=== PATIENT | female | born 1985 | race Caucasian/White ===

== ENCOUNTER 2016-05-01 18:26 | Emergency (ER) | payer MEDICAID, OTHER ==
[~2016-05-01] VITALS: Ht 165.1 cm; Wt 84.0 kg
[~2016-05-01 18:26] MED LIST: DEXM20XR PO; LEXA10TA PO
[2016-05-01 18:55] VITALS: BP 135/82; PULSE 86; RESP 16; TEMP 98.8; O2SAT 100
[2016-05-01] MEDS ORDERED: METHOCARBAMOL 500 MG TAB PO SCH (20:45)
[2016-05-01] MEDS ORDERED: ACETAMIN 325 MG/BUTALBITAL 50 MG/CAFFEINE 40 MG TAB PO ONE (20:45)
--- NOTE | 2016-05-01 20:53 | PD ---
HPI Chief Complaint: Musculoskeletal Complaint Time Seen by Provider: 20:40 Travel History International Travel<30 days: No Contact w/Intl Traveler<30days: No Traveled to known affect area: No History of Present Illness HPI 30-year-old female presents to the emergency room for evaluation of neck and back pain causing posterior headache for the past 4-5 days. 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 Believes this may have exacerbated her pain. Pain starts in the neck and radiates upward and downward. She has been taking Advil without significant relief in symptoms. No history of migraine headaches. Headache is in the back of her skull and also occurs over the right frontal sinuses. Reports associated photophobia. Headache is relieved with neck extension. Patient denies any nasal congestion, cough, or cold symptoms. No aura, nausea, vomiting, fever, chills. Denies any trauma. PFSH Past Medical History Medical History: Denies Significant Hx Diabetes: No Diminished Hearing: No Immunizations Current: No Tetanus Vaccination: < 5 Years Influenza Vaccination: No ?: Unknown LMP: 12 25 16 Past Surgical History Surgical History: No Previous Surgery Social History Alcohol Use: No Tobacco Use: No Substance Use: No Allergies-Medications (Allergen,Severity, Reaction): Coded Allergies: Benadryl (Verified Allergy, Severe, 05/01/16) Penicillin (Verified Allergy, Severe, RASH, 05/01/16) Reported Meds & Prescriptions Reported Meds & Active Scripts Active Ibuprofen 800 Mg Tab 800 Mg PO Q8H PRN Robaxin (Methocarbamol) 750 Mg Tab 750 Mg PO Q8HR Review of Systems Except as stated in HPI: all other systems reviewed are Neg Physical Exam Narrative GENERAL: Well-nourished, well-developed female in no acute distress. Afebrile. Ambulatory. SKIN: Warm and dry. HEAD: Normocephalic. EYES: No scleral icterus. No injection or drainage. NECK: Supple, trachea midline. No JVD or lymphadenopathy. No midline tenderness. Full range of motion. No meningismus. CARDIOVASCULAR: Regular rate and rhythm without murmurs, gallops, or rubs. RESPIRATORY: Breath sounds equal bilaterally. No accessory muscle use. NEUROLOGICAL: Awake and alert. Cranial nerves II through XII intact. Motor and sensory grossly within normal limits. Five out of 5 muscle strength in all muscle groups. Normal speech. Data Data Last Documented VS Vital Signs Date Time Temp Pulse Resp B/P Pulse Ox O2 Delivery O2 Flow Rate FiO2 05/01/16 18:55 98.8 86 16 135/82 100 Orders Wbnw-Dymnl-Inqi 325-50-40 Mg (Fioricet 3 (05/01/16 20:45) Methocarbamol (Robaxin) (05/01/16 20:45) MDM Medical Decision Making Medical Screen Exam Complete: Yes Emergency Medical Condition: Yes Medical Record Reviewed: Yes Differential Diagnosis Migraine versus muscle spasm versus strain versus fracture Narrative Course 30-year-old female presents to the emergency room for evaluation of neck pain that radiates into her back and head; it has been ongoing for the past 4-5 days , improves occasionally with Aleve. Denies any trauma or injury. 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 No midline tenderness of the cervical spine. Tenderness with patient the bilateral paraspinous musculature. Full range of motion of the neck. Headache pain is improved with neck extension. No meningismus. She denies history of migraines. Associated photophobia. Patient has no associated symptoms of sinusitis or upper respiratory infection. She is afebrile and well-appearing in the emergency room. Resting comfortably in bed. Laughing, smiling. No focal neurological deficits on exam. No indication for emergent CT imaging. History of physical exam are consistent with cervical strain causing headache. Patient was given Fioricet and Robaxin the emergency room. She'll be discharged with prescriptions for ibuprofen and Robaxin and told to follow up with the primary care physician or return to the emergency room for worsening symptoms. She understands and agrees to this plan. Diagnosis Primary Impression: Cervical strain, acute Qualified Code: S16.1XXA - Cervical strain, acute, initial encounter Referrals: Primary Care Physician Patient Instructions: Cervical Strain (ED), General Instructions Additional Instructions: Rest and drink plenty of fluids. Take Robaxin as directed, as needed for pain. Take ibuprofen with food as directed, as needed for pain. Apply ice to the affected area for 20 minutes at a time, as needed for pain and swelling. Follow-up with a primary care physician. Return to the emergency room for worsening symptoms. Med/Other Pt SpecificInfo: Prescription(s) given Scripts Ibuprofen 800 Mg [id number] Mg PO Q8H PRN (Pain/Inflammation) #21 TAB Ref 0 Prov:Aniyah Holguin MD 05/01/16 Methocarbamol (Robaxin)750 Mg Xwd365 Mg PO Q8HR #21 TAB Ref 0 Prov:Aniyah Holguin MD 05/01/16 Disposition: 01 DISCHARGE HOME Condition: Stable Kimberly Lo May 01, 2016 20:53
[2016-05-01] MEDS ORDERED: IBUP800T23 PO (20:54)
[2016-05-01] MEDS ORDERED: ROBA750T PO (20:54)
== END 2016-05-01 21:41 | disposition home or self-care (01) ==
LOC: PHEFT 18:26
DX: S16.1XXA Strain of muscle, fascia and tendon at neck level, initial encounter (principal); R51 Headache; H53.149 Visual discomfort, unspecified; X50.0XXA Overexertion from strenuous movement or load, initial encounter; Y93.F2 Activity, caregiving, lifting; Y99.0 Civilian activity done for income or pay
CPT/HCPCS: 99283

== ENCOUNTER 2017-01-06 04:20 | Emergency (ER) | payer MEDICAID ==
[~2017-01-06] VITALS: Ht 165.1 cm; Wt 78.0 kg
[~2017-01-06 04:20] MED LIST changes: -DEXM20XR PO; +IBUP800T23 PO; -LEXA10TA PO; +ROBA750T PO
[2017-01-06 04:25] VITALS: BP 130/62; PULSE 62; RESP 18; TEMP 98.1; O2SAT 99
--- NOTE | 2017-01-06 04:52 | PD ---
HPI Chief Complaint: Related Problem Time Seen by Provider: 04:35 Travel History International Travel<30 days: No Contact w/Intl Traveler<30days: No History of Present Illness HPI patient is a 31-year-old female here approximately 7-9 weeks gestational age, continues to smoke presents emergency Department with abdominal cramping wrapping around her back which she states feels like contractions associated with some spotting of blood now becoming of her bleeding. Denies any vomiting but does endorse some nausea. Denies any diarrhea constipation or dysuria. States symptoms are moderate and she thinks might be having a miscarriage. [facility] Past Medical History Medical History: Denies Significant Hx Diabetes: No Diminished Hearing: No Immunizations Current: No Past Surgical History Surgical History: No Previous Surgery Social History Alcohol Use: No Tobacco Use: Yes Substance Use: No Allergies-Medications (Allergen,Severity, Reaction): Coded Allergies: diphenhydramine (Verified Allergy, Severe, 01/06/17) penicillin G (Verified Allergy, Severe, RASH, 01/06/17) Reported Meds & Prescriptions Reported Meds & Active Scripts Active No Active Prescriptions or Reported Medications Review of Systems Except as stated in HPI: all other systems reviewed are Neg Physical Exam Narrative GENERAL: Well-developed well-nourished no obvious distress SKIN: Focused skin assessment warm/dry. HEAD: Atraumatic. Normocephalic. EYES: Pupils equal and round. No scleral icterus. No injection or drainage. ENT: No nasal bleeding or discharge. Mucous membranes pink and moist. NECK: Trachea midline. No JVD. CARDIOVASCULAR: Regular rate and rhythm. No murmur appreciated. RESPIRATORY: No accessory muscle use. Clear to auscultation. Breath sounds equal bilaterally. GASTROINTESTINAL: Abdomen soft, non-tender, nondistended. Hepatic and splenic margins not palpable. GENITOURINARY: Vaginal bleeding, moderate blood in the vaginal vault, no cervical motion tenderness no bimanual tenderness. Later in the counter the patient did pass tissue consistent with products of conception. MUSCULOSKELETAL: No obvious deformities. No clubbing. No cyanosis. No edema. NEUROLOGICAL: Awake and alert. No obvious cranial nerve deficits. Motor grossly within normal limits. Normal speech. PSYCHIATRIC: Appropriate mood and affect; insight and judgment normal. Data Data Last Documented VS Vital Signs Date Time Temp Pulse Resp B/P (MAP) Pulse Ox O2 Delivery O2 Flow Rate FiO2 01/06/17 06:47 01/06/17 06:12 98.0 61 17 98 Room Air Orders Orders Urinalysis - C+S If Indicated (01/06/17 04:34) Ed Urine Pregnancytest Poc (01/06/17 04:34) Ed Poc Ultrasound (01/06/17 ) Complete Blood Count With Diff (01/06/17 04:49) Beta Hcg (Quant/Titer) (01/06/17 04:49) Acetaminophen (Tylenol) (01/06/17 05:15) Labs Laboratory Tests Test 01/06/17 04:49 01/06/17 05:05 Urine Color ORANGE Urine Turbidity SLIGHT Urine pH 7.0 Urine Specific [place] 1.010 Urine Protein 30 mg/dL Urine Glucose (UA) NEG mg/dL Urine Ketones NEG mg/dL Urine Occult Blood LARGE Urine Nitrite NEG Urine Bilirubin NEG Urine Leukocyte Esterase NEG Urine RBC INNUM /hpf Urine Squamous Epithelial Cells 0-5 /hpf Urine Amorphous Sediment FEW Microscopic Urinalysis Comment CULT NOT INDICATED White Blood Count 14.4 TH/MM3 Red Blood Count 4.49 MIL/MM3 Hemoglobin 13.7 GM/DL Hematocrit 40.2 % Mean Corpuscular Volume 89.6 FL Mean Corpuscular Hemoglobin 30.6 PG Mean Corpuscular Hemoglobin Concent 34.1 % Red Cell Distribution Width 12.1 % Platelet Count 298 TH/MM3 Mean Platelet Volume 7.7 FL Neutrophils (%) (Auto) 65.1 % Lymphocytes (%) (Auto) 27.0 % Monocytes (%) (Auto) 5.6 % Eosinophils (%) (Auto) 1.8 % Basophils (%) (Auto) 0.5 % Neutrophils # (Auto) 9.3 TH/MM3 Lymphocytes # (Auto) 3.9 TH/MM3 Monocytes # (Auto) 0.8 TH/MM3 Eosinophils # (Auto) 0.3 TH/MM3 Basophils # (Auto) 0.1 TH/MM3 CBC Comment AUTO DIFF Differential Comment AUTO DIFF CONFIRMED Platelet Estimate LOW Platelet Morphology Comment NORMAL Red Cell Morphology Comment NORMAL Human Chorionic Gonadotropin, Quant 2890 MIU/ML [facility] Medical Decision Making Medical Screen Exam Complete: Yes Emergency Medical Condition: Yes Differential Diagnosis Threatened , completed miscarriage, Rh mismatch has been excluded by patient's EMR. Narrative Course patient roomed emergency department, she appears comfortable in no distress, H& H within normal limits. HCG is 2800. While awaiting for a ultrasound of her abdomen the patient did have apparent completion of her . My condolences were offered to her. Discussed smoking cessation. Discussed pelvic rest until follows up with an [employer] nurse 6 weeks. No indication for RhoGAM here. Discussed 6 blood bleeding to slow within the next 48 hours if not needs to return to the emergency department for repeat hCG and consideration of at that time for possible retained products conception. however at this time her bleeding slowed she stable for discharge. Diagnosis Primary Impression: Complete miscarriage Additional Instructions: Recommend repeat blood work in 48 hours, he can do this with your primary care physician or in the emergency department. Her hCG today is 2890. Scripts No Active Prescriptions or Reported Meds Disposition: 01 DISCHARGE HOME Condition: Stable Tim Marx MD Jan 06, 2017 04:52
[2017-01-06 04:55] LABS: BLOOD, URINE LARGE (NEG); GLUCOSE,URINE NEG (NEG); KETONE, URINE NEG (NEG); NITRITE,URINE NEG (NEG)
[2017-01-06 05:10] LABS: URINE COLOR ORANGE (YELLW/STRAW)
[2017-01-06 05:11] LABS: RBC, URINE INNUM /hpf (0-3); SQUAMOUS EPITHELIAL CELL URINE 0-5 /hpf (0-5)
[2017-01-06 05:12] LABS: COMMENT (UR) CULT NOT INDICATED; CULTURE IF INDICATED CULT NOT INDICATED
[2017-01-06] MEDS ORDERED: ACETAMINOPHEN 325 MG TAB PO ONE (05:15)
[2017-01-06 05:27] LABS: AUTOMATED NEUTROPHIL # 9.3 TH/MM3 (1.8-7.7); BASOPHIL # 0.1 TH/MM3 (0-0.2); BASOPHIL % 0.5 % (0.0-2.0); EOSINOPHIL # 0.3 TH/MM3 (0-0.4); EOSINOPHIL % 1.8 % (0.0-4.0); HEMATOCRIT 40.2 % (35.0-46.0); LYMPHOCYTE # 3.9 TH/MM3 (1.0-4.8); MEAN CELL VOLUME 89.6 FL (80.0-100.0); MEAN CORPUSCULAR HEMOGLOBIN 30.6 PG (27.0-34.0); MEAN CORPUSCULAR HGB CONC 34.1 % (32.0-36.0); MONO % 5.6 % (0.0-8.0); NEUT % 65.1 % (16.0-70.0); PLATELET COUNT 298 TH/MM3 (150-450); RED BLOOD COUNT 4.49 MIL/MM3 (4.00-5.30); RED CELL DISTRIBUTION WIDTH 12.1 % (11.6-17.2); WHITE BLOOD COUNT 14.4 TH/MM3 (4.0-11.0)
[2017-01-06 05:30] LABS: HEMO FLAGS AUTO DIFF
[2017-01-06 05:51] LABS: BETA HCG QUANT 2890 MIU/ML (0-5); SCAN/DIFF AUTO DIFF CONFIRMED
[2017-01-06 05:52] LABS: PLATELET ESTIMATE SMEAR LOW (NORMAL); PLATELET MORPHOLOGY NORMAL (NORMAL)
[2017-01-06 06:12] VITALS: BP 116/73; PULSE 61; RESP 17; TEMP 98; O2SAT 98
== END 2017-01-06 06:55 | disposition home or self-care (01) ==
LOC: PHED 04:20
DX: O03.9 Complete or unspecified spontaneous abortion without complication (principal); R11.0 Nausea; Z72.0 Tobacco use; Z3A.08 8 weeks gestation of pregnancy
CPT/HCPCS: 81001; 84702; 85025; 88305; 99284

== ENCOUNTER 2017-01-08 10:23 | Emergency (ER) | payer MEDICAID ==
[~2017-01-08] VITALS: Ht 165.1 cm; Wt 77.1 kg
[2017-01-08 10:24] VITALS: BP 137/68; PULSE 66; RESP 18; TEMP 97.3; O2SAT 99
--- NOTE | 2017-01-08 10:43 | PD ---
HPI Chief Complaint: Abnormal Results Time Seen by Provider: 10:43 Travel History International Travel<30 days: No Contact w/Intl Traveler<30days: No Traveled to known affect area: No History of Present Illness HPI 31-year-old female came to the emergency room with history of repeat beta-hCG that she was asked to come back today to get it done. Patient started having miscarriage 4 days ago. She was seen in the emergency room 2 days ago at which point she was diagnosed with complete . Since her beta-hCG was high and she was asked to come back to get it repeated. Patient says she still bleeding but it is getting less and she is not passing as many clots. The cramp is still there but again getting better. She seems comfortable and vital signs are stable. Patient was signed weeks . No OB care was done. [facility] Past Medical History Narrative Medical list of her past medical, surgical, social and family history is reviewed from the nursing note. Diabetes: No Diminished Hearing: No Immunizations Current: No Influenza Vaccination: No ?: Unknown LMP: 10/2016 : 4 Para: 2 : 1 Social History Alcohol Use: No Tobacco Use: Yes Substance Use: No Allergies-Medications (Allergen,Severity, Reaction): Coded Allergies: diphenhydramine (Verified Allergy, Severe, 01/08/17) penicillin G (Verified Allergy, Severe, RASH, 01/08/17) Comments List of her allergies reviewed from the nursing note. Reported Meds & Prescriptions Reported Meds & Active Scripts Active No Active Prescriptions or Reported Medications Narrative Medication List of her home medications reviewed from the nursing note. Review of Systems Except as stated in HPI: all other systems reviewed are Neg Physical Exam Narrative GENERAL: Awake, alert, no obvious distress SKIN: Focused skin assessment warm/dry. HEAD: Atraumatic. Normocephalic. EYES: Pupils equal and round. No scleral icterus. No injection or drainage. ENT: No nasal bleeding or discharge. Mucous membranes pink and moist. NECK: Trachea midline. No JVD. CARDIOVASCULAR: Regular rate and rhythm. No murmur appreciated. RESPIRATORY: No accessory muscle use. Clear to auscultation. Breath sounds equal bilaterally. GASTROINTESTINAL: Abdomen soft, non-tender, nondistended. Hepatic and splenic margins not palpable. MUSCULOSKELETAL: No obvious deformities. No clubbing. No cyanosis. No edema. NEUROLOGICAL: Awake and alert. No obvious cranial nerve deficits. Motor grossly within normal limits. Normal speech. PSYCHIATRIC: Appropriate mood and affect; insight and judgment normal. Data Data Last Documented VS Vital Signs Date Time Temp Pulse Resp B/P (MAP) Pulse Ox O2 Delivery O2 Flow Rate FiO2 01/08/17 10:24 97.3 66 18 137/68 (91) 99 Orders Orders Beta Hcg (Quant/Titer) (01/08/17 10:48) Labs Laboratory Tests Test 01/08/17 11:15 Human Chorionic Gonadotropin, Quant 294 MIU/ML MDM Medical Decision Making Medical Screen Exam Complete: Yes Emergency Medical Condition: Yes Medical Record Reviewed: Yes Differential Diagnosis Completed miscarriage, repeat blood test Narrative Course 11:31 AM blood test has been sent. Awaiting for the test result. 11:44 AM blood test result is back and the titer is significantly lower. I'll discharge her home. Procedures EKG Prior to Arrival: No Diagnosis Primary Impression: Complete Referrals: Primary Care Physician Additional Instructions: no tampons, vaginal intercourse, douching or anything in the vagina until the bleeding has completely stopped. Do not lift heavy weights. Return to the ER if the condition worsens or any other new concerns. Otherwise follow-up with your primary care. Med/Other Pt SpecificInfo: No Change to Meds Scripts No Active Prescriptions or Reported Meds Disposition: 01 DISCHARGE HOME Condition: Stable Slava Kennedy MD Jan 08, 2017 10:43
[2017-01-08 11:39] LABS: BETA HCG QUANT 294 MIU/ML (0-5)
== END 2017-01-08 12:07 | disposition home or self-care (01) ==
LOC: PHED 10:23
DX: O03.9 Complete or unspecified spontaneous abortion without complication (principal); Z72.0 Tobacco use
CPT/HCPCS: 84702; 99281

== ENCOUNTER 2017-05-02 13:28 | Emergency (ER) | payer MEDICAID ==
[~2017-05-02] VITALS: Ht 165.1 cm; Wt 77.3 kg
[2017-05-02 13:37] VITALS: BP 146/70; PULSE 81; RESP 16; TEMP 98.6; O2SAT 99
--- NOTE | 2017-05-02 15:01 | PD ---
HPI Chief Complaint: Musculoskeletal Complaint Time Seen by Provider: 14:56 Travel History International Travel<30 days: No Contact w/Intl Traveler<30days: No Traveled to known affect area: No History of Present Illness HPI Patient presents with complaints of muscular pain in the left hamstring and left calf for one to 2 days. Denies any trauma misstep or fall. No history of bleeding disorder. Denies any excessive ambulation. Denies any excessive climbing of stairs. She is gravid. Denies any new chest pain shortness of breath urinary or bowel symptoms. Denies any nausea vomiting diarrhea or fever. PFSH Past Medical History Medical History: Denies Significant Hx Diabetes: No Diminished Hearing: No Immunizations Current: No Tetanus Vaccination: < 5 Years Influenza Vaccination: No ?: LMP: 02/24/2017 : 4 Para: 2 : 1 Past Surgical History Surgical History: No Previous Surgery Social History Alcohol Use: No Tobacco Use: Yes (04/27 pk) Substance Use: No Allergies-Medications (Allergen,Severity, Reaction): Coded Allergies: diphenhydramine (Verified Allergy, Severe, 05/02/17) penicillin G (Verified Allergy, Severe, RASH, 05/02/17) Reported Meds & Prescriptions Reported Meds & Active Scripts Active No Active Prescriptions or Reported Medications Review of Systems General / Constitutional: No: Fever Eyes: No: Visual changes HENT: No: Headaches Cardiovascular: No: Chest Pain or Discomfort Respiratory: No: Shortness of Breath Gastrointestinal: No: Abdominal Pain Genitourinary: No: Dysuria Musculoskeletal: Positive: Pain Skin: No Rash Neurologic: No: Weakness Psychiatric: No: Depression Endocrine: No: Polydipsia Hematologic/Lymphatic: No: Easy Bruising Physical Exam Narrative GENERAL: Well-nourished, well-developed patient. SKIN: Focused skin assessment warm/dry. HEAD: Normocephalic. EYES: No scleral icterus. No injection or drainage. NECK: Supple, trachea midline. No JVD or lymphadenopathy. CARDIOVASCULAR: Regular rate and rhythm without murmurs, gallops, or rubs. RESPIRATORY: Breath sounds equal bilaterally. No accessory muscle use. GASTROINTESTINAL: Abdomen soft, non-tender, nondistended. MUSCULOSKELETAL: No cyanosis, or edema. BACK: Nontender without obvious deformity. No CVA tenderness. Good flexion and extension of the left ankle, good flexion and extension of the left knee, good flexion and extension as well as abduction of the left hip. Femoral pulse palpated. Dorsal pedis pulse palpated. No erythema or edema noted anywhere in the left lower extremity. Tenderness to palpation over the left hamstring and left calf. Data Data Last Documented VS Vital Signs Date Time Temp Pulse Resp B/P (MAP) Pulse Ox O2 Delivery O2 Flow Rate FiO2 05/02/17 13:37 98.6 81 16 146/70 (95) 99 MDM Medical Decision Making Medical Screen Exam Complete: Yes Emergency Medical Condition: Yes Differential Diagnosis Myalgias, arthralgia, DVT Narrative Course Assessment and plan discussed with patient at bedside. Diagnosis Primary Impression: Myalgia Additional Instructions: Tylenol since she is gravid, warm heat, gentle stretching and strengthening and massage. Follow-up with PCP or OB, continue vitamin. Return to emergency room with any onset of new symptoms. Med/Other Pt SpecificInfo: No Meds Exist/No RX given Scripts No Active Prescriptions or Reported Meds Disposition: 01 DISCHARGE HOME Condition: Good Calvin Muro MD May 02, 2017 15:01
[2017-05-02 15:17] VITALS: BP 120/77
== END 2017-05-02 15:18 | disposition home or self-care (01) ==
LOC: PHED 13:28
DX: M79.1 Myalgia (principal); F17.210 Nicotine dependence, cigarettes, uncomplicated
CPT/HCPCS: 99282

== ENCOUNTER 2017-06-19 00:35 | Emergency (ER) | payer MEDICAID ==
[~2017-06-19] VITALS: Ht 165.1 cm; Wt 80.0 kg
[2017-06-19 00:39] VITALS: BP 131/64; PULSE 84; RESP 18; TEMP 98; O2SAT 99
[2017-06-19 01:02] VITALS: BP 138/73; PULSE 94; RESP 18
[2017-06-19 02:09] VITALS: BP 107/53; PULSE 77; RESP 16; O2SAT 99
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
[2017-06-19 03:27] VITALS: BP 118/69
== END 2017-06-19 03:31 | disposition home or self-care (01) ==
LOC: PHED 00:35
DX: O26.892 Other specified pregnancy related conditions, second trimester (principal); S10.93XA Contusion of unspecified part of neck, initial encounter; O99.332 Smoking (tobacco) complicating pregnancy, second trimester; F17.210 Nicotine dependence, cigarettes, uncomplicated; Y04.8XXA Assault by other bodily force, initial encounter; Z3A.00 Weeks of gestation of pregnancy not specified; Z88.0 Allergy status to penicillin